=== PATIENT | male | born 1975 | race Caucasian/White ===

== ENCOUNTER 2019-10-05 07:00 | Outpatient (CLI) | payer BC, SELFPAY ==
[2019-10-05 10:52] LABS: HCT 44.3 % (40.0-50.0); HGB 14.5 g/dL (13.5-17.5); Mean Corp. HGB Concentration 32.7 g/dL (32.0-36.0); Mean Corpuscular Hemoglobin 26.3 pg (27.0-33.0); Mean Corpuscular Volume 80.4 fL (80-95); Mean Platelet Volume 9.5 fL (8.0-11.0); Platelet Count 318 x1000/uL (130-400); RBC 5.51 m/cumm (4.50-6.00); RBC Distribution Width 14.1 % (11.8-14.1); White Blood Cell Count 8.06 k/cumm (4.4-10.8)
[2019-10-05 13:39] LABS: ALT 32 U/L (16-63); AST 13 U/L (15-37); Albumin 3.6 g/dL (3.4-5.0); Alkaline Phosphatase 89 U/L (46-116); Anion Gap 9.4 mmol/L (3-11); BUN 13 mg/dL (7-18); Bilirubin, Total 0.6 mg/dL (0.2-1.0); CO2 28.6 mmol/L (21.0-32.0); CREATININE 0.89 mg/dL (0.70-1.30); Calcium 8.6 mg/dL (8.5-10.1); Calculated LDL 147 mg/dL; Chloride 104 mmol/L (98-107); Cholesterol 207 mg/dL (50-200); Glucose 89 mg/dL (70-100); HDL Cholesterol 41 mg/dL (40-60); Potassium 4.1 mmol/L (3.5-5.1); Sodium 142 mmol/L (136-145); TSH (W/Ref FT4) 2.34 uIU/mL (0.36-3.74); Total Protein 6.9 g/dL (6.4-8.2); Triglyceride 95 mg/dL (30-150)
== END 2019-10-05 07:20 ==
PROVIDERS: Family Medicine; PCP Emergency Medicine; Visit Provider Emergency Medicine
DX: I10 Essential (primary) hypertension (principal); E78.5 Hyperlipidemia, unspecified
CPT/HCPCS: 36415; 80053; 80061; 85027; 84443

== ENCOUNTER 2020-06-06 10:54 | Observation (INO) | payer BC, SELFPAY ==
[2020-06-06] VITALS (50 sets, daily range): BP systolic 144–217; BP diastolic 75–110; PULSE 53–81; RESP 8–22; TEMP 36.7–37.3; O2SAT 83–99
--- NOTE | 2020-06-06 10:45 | RT.EKG_ITS ---
APPROVED REPORT Exam: Resting ECG Patient Location: E HR:79 bpm ECG Measurements Heart Rate 79 AXIS NM 143 P 18 QRSd 94 QRS -21 QT 410 T 9 QTc 472 <Conclusion> Sinus rhythm...normal P axis, V-rate79, QRS is narrow, wandering baseline, ? subtle lateral st depres sions. Probable LVH with secondary repol abnrm...multiple LVH criteria
[2020-06-06] MEDS: Normal Saline Flush 10 ML SYR IVP ×2 (11:14→16:10)
[2020-06-06 11:17] LABS: Abs Immature Grans 0.02 k/cumm (0.0-0.09); Absolute Basophil Count 0.07 k/cumm (0.0-0.2); Absolute Eosinophil Count 0.61 k/cumm (0.0-0.7); Absolute Lymphocyte Count 2.03 k/cumm (1.2-3.4); Absolute Monocyte Count 0.83 k/cumm (0.11-0.7); Basophils % 0.7; Eosinophils % 5.7; HCT 45.5 % (40.0-50.0); HGB 15.2 g/dL (13.5-17.5); Immature Grans % 0.2 %; Mean Corp. HGB Concentration 33.4 g/dL (32.0-36.0); Mean Corpuscular Hemoglobin 26.3 pg (27.0-33.0); Mean Corpuscular Volume 78.7 fL (80-95); Monocytes % 7.8; Neutrophils % 66.6; Platelet Count 304 x1000/uL (130-400); RBC 5.78 m/cumm (4.50-6.00); RBC Distribution Width 13.8 % (11.8-14.1); White Blood Cell Count 10.66 k/cumm (4.4-10.8)
--- NOTE | 2020-06-06 11:26 | ED.GENADUL_ITS ---
Discharge Plan Disposition Patient Disposition: [facility] INPATIENT Condition: Serious Discharge Details Chief Complaint: Chest Pain Clinical Impression: Bilateral pulmonary embolism Primary Care Provider: Huy Min ED Provider: Evan Hastings Home Meds and New Rx's Prescriptions: No Action amlodipine 5 mg tablet 5 mg PO DAILY Qty: 60 RF: 5 valsartan 160 mg tablet 160 mg PO DAILY Qty: 60 RF: 5 ibuprofen 200 MG capsule 4 tab PO BID PRN RF: 0 epinephrine 0.3 MG/0.3 ML auto-injector 0.3 mg IM ONCE Qty: 1 RF: 2 esomeprazole magnesium [Nexium] 20 MG capsule,delayed release(DR/EC) 20 mg PO DAILY Qty: 90 RF: 3 naproxen 250 MG tablet 2 tab PO BID PRN PRNRF: 0 Medical Decision Making 45-year-old male with a history of hypertension. Referred by Dr. Min after coming to the office today to report 5 days of primarily exertional dyspnea. He states it began after 1 day using his CPAP and he stopped using the CPAP since. He has noted some mild daily headaches in the morning since ceasing positive airway pressure at night. He arrives hypertensive with a blood pressure of 217/109. EKG both in the office and repeated upon arrival does show some subtle lateral ST segment depressions similar to that obtained in the office. Differential diagnosis includes coronary artery disease/ACS, PE, new onset CHF. Patient had IV access established, was referred for laboratories, screening EKG as above and chest x-ray. Laboratories notable for negative troponin, preserved renal function, d-dimer of 6200. Subsequent CT of the chest reveals bilateral upper and lower lobe PEs without evidence of right heart strain. I have ordered an echocardiogram. Patient remains stable and in no acute distress, the echocardiogram reveals normal LV wall motion with an ejection fraction of 60%. Right ventricular systolic function is normal. Case discussed with Dr. Hinton. Patient anticoagulated with Lovenox. Patient to be admitted. HPI General Mode of arrival: ambulatory . Date/Time Provider Initiated Documentation: 06/06/20 10:55 . Limitations to Documentation: no limitations . Information obtained by: patient . History of Present Illness 45 year old M presents to the emergency department with the chief complaint of Shortness of breath, described as moderate, and is localized to the chest. Patient reports no radiation. Patient started experiencing this day(s) and it has been intermittent. Rest improves symptom(s), Other factors that worsen symptoms (Exertion) . Patient notes shortness of breath; denies chest pain and syncope. Patient did receive the following treatments prior to arrival, none Related Data Home Medications Medication Instructions Recorded Confirmed ibuprofen 4 tab PO BID PRN 08/29/14 06/06/20 naproxen 2 tab PO BID PRN PRN 10/10/14 06/06/20 epinephrine 0.3 mg IM ONCE #1 syringe 07/02/15 06/06/20 esomeprazole magnesium [Nexium] 20 mg PO DAILY #90 tab-cap 01/27/17 06/06/20 amlodipine 5 mg tablet 5 mg PO DAILY #60 tab 10/05/19 06/06/20 valsartan 160 mg tablet 160 mg PO DAILY #60 tab 10/05/19 06/06/20 Previous Rx's Medication Instructions Recorded amlodipine 5 mg tablet 5 mg PO DAILY #60 tab 10/05/19 valsartan 160 mg tablet 160 mg PO DAILY #60 tab 10/05/19 Allergies Allergy/AdvReac Type Severity Reaction Status Date / Time venom-honey bee Allergy Severe Anaphylaxsi Verified 06/06/20 10:17 s acetaminophen [From Percocet] AdvReac Intermediate N/V AND Verified 06/06/20 10:17 ABDOMINAL CRAMPING/Rebound VIEYRA oxycodone HCl [From Percocet] AdvReac Intermediate N/V AND Verified 06/06/20 10:17 ABDOMINAL CRAMPING General Stated Complaint: Chest Pain GANGA: 2 Review of Systems Narrative: Denies syncope. Denies chest pain. He grades the severity of the exertional dyspnea up to 5-6 out of 10, 3 out of 10 after walking from the parking lot. 100 pound weight gain over 20 years. No peripheral swelling. 8 systems reviewed and otherwise negative. No cough, fever, travel of note. COUNTS INCLUDE 234 BEDS AT THE [facility] Medical History Sleep apnea in adult (Acute) Social History Smoking/Tobacco Use Status: Former Tobacco Use Alcohol Intake: current Alcohol Intake frequency: a few times a month Drug use: Never Substance use type: does not use Do you feel safe at home: Yes Do you feel safe in your relationship?: Yes Exam Narrative Exam Narrative: GEN: awake, alert, oriented 3. Pleasant, well groomed, interactive. HEAD: Normocephalic, atraumatic ENT: Mucous membranes moist, oropharynx unremarkable, External ear exam unremarkable EYES: PERRL, EOMI NECK: Full ROM, no KRISTINA, no menigismus CHEST/RESP: Nontender, clear to auscultation bilateral, no wheeze/rhonchi/rales CARDIOVASCULAR: RRR, no murmur, rub osmel. 2+ Rad pulse bilateral ABDOMEN: Soft, nontender, no mass. +Bowel sounds EXT: Full ROM, no edema, no rash Neuro: Grossly normal neurologic exam, conversant, interactive. Psych: Speech fluent, thoughts congruent, affect normal Course Vital Signs Vital signs: Vital Signs Pulse Oximetry 94 L 06/06/20 10:59 Temperature 36.7 C 06/06/20 11:01 Temperature Source Temporal Artery Scan 06/06/20 11:01 Pulse 72 06/06/20 11:07 Pulse 71 06/06/20 11:10 Respiratory Rate 13 06/06/20 11:10 Respiratory Effort Non-Labored 06/06/20 11:06 Respiratory Depth Normal 06/06/20 11:06 Blood Pressure 184/107 H 06/06/20 11:07 Blood Pressure Mean 127 06/06/20 11:07 Blood Pressure Position Sitting 06/06/20 11:01 Pulse Oximetry 98 06/06/20 11:10 Oxygen Delivery Method Room Air 06/06/20 11:01 Oxygen Flow Rate 0 06/06/20 11:01 Pain Level 0 06/06/20 11:06 Lab/Test Results Lab/Test Results: Laboratory Tests Range/Units 06/06/20 11:04 WBC (4.4-10.8) k/cumm 10.66 RBC (4.50-6.00) m/cumm 5.78 Hgb (13.5-17.5) g/dL 15.2 Hct (40.0-50.0) % 45.5 MCV (80-95) fL 78.7 L MCH (27.0-33.0) pg 26.3 L MCHC (32.0-36.0) g/dL 33.4 RDW (11.8-14.1) % 13.8 Plt Count (130-400) x1000/uL 304 MPV (8.0-11.0) fL 9.0 Immature Gran % % 0.2 Neutrophils % 66.6 Lymphocytes % 19.0 Monocytes % 7.8 Eosinophils % 5.7 Basophils % 0.7 Absolute Neutrophils (1.2-6.7) k/cumm 7.10 H Absolute Lymphocytes (1.2-3.4) k/cumm 2.03 Absolute Monocytes (0.11-0.7) k/cumm 0.83 H Absolute Eosinophils (0.0-0.7) k/cumm 0.61 Absolute Basophils (0.0-0.2) k/cumm 0.07
[2020-06-06 11:36] LABS: ALT 32 U/L (16-63); AST 13 U/L (15-37); Albumin 3.6 g/dL (3.4-5.0); Alkaline Phosphatase 94 U/L (46-116); Anion Gap 9.8 mmol/L (3-11); BUN 12 mg/dL (7-18); Bilirubin, Total 0.7 mg/dL (0.2-1.0); CO2 27.2 mmol/L (21.0-32.0); CREATININE 0.99 mg/dL (0.70-1.30); Calcium 8.8 mg/dL (8.5-10.1); Chloride 102 mmol/L (98-107); Glucose 153 mg/dL (74-106); Magnesium 2.2 mg/dL (1.8-2.4); NT-proBNP 82 pg/mL (<300); Potassium 3.7 mmol/L (3.5-5.1); Sodium 139 mmol/L (136-145); Total Protein 7.9 g/dL (6.4-8.2); Troponin I < 0.05 ng/mL (<0.06)
--- NOTE | 2020-06-06 11:38 | DI.RAD_ITS ---
EXAM: XR CHEST 2V PA LATERAL CLINICAL HISTORY: exertional SOB TECHNIQUE: 2D digital imaging was performed. COMPARISON: No exams were available for comparison FINDINGS: MEDIASTINUM: Normal. HEART: Normal. PULMONARY VASCULATURE: Normal. LUNGS: Clear. PLEURAL SPACE: No pleural effusion or pneumothorax. BONE:Normal. OTHER FINDINGS:Normal. IMPRESSION: No acute pulmonary findings. DATA REPOSITORY: RADIATION DOSE DELIVERED:
[2020-06-06] MEDS: Aspirin 325 MG TAB PO (11:40)
--- NOTE | 2020-06-06 12:00 | DI.CT_ITS ---
EXAM: CT CHEST PE CTA CLINICAL HISTORY: SOB w exertion, elev DDimer. TECHNIQUE: Imaging Protocol: Axial CT angiography was performed with multi-slice acquisition and mu lti-planar and/or 3D reconstructions. CONTRAST MATERIAL: Intravenous: Omnipaque 350 Contrast volume:88 ml COMPARISON: CR XR CHEST 2V PA LATERAL from 06/06/2020 FINDINGS: Pulmonary Arteries: There are filling defects in both upper and lower lobe pulmonary artery branches bilaterally. There is no saddle embolus. Tracheobronchial tree: Patent where visualized. Mediastinum and Dorina: No dominant adenopathy or fluid collection. Pulmonary parenchyma: No consolidation or dominant measurable mass. Pleura: No effusion or pneumothorax. Heart: Heart size appears normal. There is no evidence of right heart strain. Aorta: Thoracic aorta non-dilated. Upper abdomen: Fatty liver. Bones: Mild degenerative disc changes in the spine.. IMPRESSION: Bilateral upper and lower lobe pulmonary emboli. RADIATION DOSE DELIVERED: Total DLP DATA REPOSITORY: All CT scans at this facility are submitted to the National Radiology Data Registry (NRDR) Dose Index Registry (DIR) with the [employer] (ACR). RADIATION OPTIMIZATION: All CT scans at this facility use at least one of these dose optimization te chniques: automated exposure control; mA and/or kV adjustment per patient size (includes targeted exa ms where dose is matched to clinical indication); or iterative reconstruction.
[2020-06-06 12:10] LABS: D-Dimer 6232 ng/mlFEU (<500)
[2020-06-06] MEDS: Omnipaque 350 MG/ML 100 ML BTL IJ (13:00)
--- NOTE | 2020-06-06 13:31 | DI.US_ITS ---
APPROVED REPORT EXAM: Comprehensive 2D, Doppler, and color-flow Echocardiogram Patient Location: ER Room/Bed: 4 Header Operator: Nolvia Hemphill RDCS (AE) Indications: SOB, Pulmonary Embolism Other Information Study Quality: Good Conclusion Normal left ventricular wall thickness and chamber size. Estimated ejection fraction is 60% Right ventricular size and function is normal There is no chamber enlargement There is no structural valvular disease. There is trace physiologic mitral and tricuspid regurgitation. Estimated right ventricular systolic pressure is 31.7 mmHg Wall motion Left Ventricle The left ventricle is normal size. The left ventricular systolic function is normal. The left ventric ular ejection fraction is within the normal range. There is normal left ventricular wall thickness. T here is normal LV segmental wall motion. There is no ventricular septal defect visualized. LVEF is 60 %. Right Ventricle The right ventricle is normal size. The right ventricular systolic function is normal. The RVSP is 31 .7 mmHg. Atria The left atrium size is normal. The right atrium size is normal. The interatrial septum is intact wit h no evidence for an atrial septal defect. Aortic Valve Aortic valve is trileaflet. No hemodynamically significant valvular aortic stenosis. No aortic regurg itation is present. Mitral Valve The mitral valve is normal in structure. No evidence of mitral valve stenosis. Trace mitral regurgita tion. Tricuspid Valve The tricuspid valve is normal in structure. There is no tricuspid valve stenosis. Trace tricuspid reg urgitation. Pulmonic Valve The pulmonary valve is normal in structure. There is no pulmonic valvular stenosis. There is no pulmo richmond valvular regurgitation. Great Vessels The aortic root is normal in size. The ascending aorta is mildly dilated. IVC is normal in size and c ollapses >50% with inspiration. Pericardium There is no pericardial effusion. There is no pleural effusion. 2D Dimensions IVSD d PLAX 1.00 cm M: 0.6-1.2 LV Vol A2C d MOD 135.7 mL LVPW d PLAX 1.02 cm M: 0.6 - 1.2 LV Vol A4C d MOD 137.8 mL LVID d PLAX 5.87 cm M: 4.2 - 5.8 LA vol/ BSA A2C s A-L 24.1 mL/m2 LVDs 3.95 cm M: 2.5 - 4.0 LA vol/ BSA A4C s A-L 19.7 mL/m2 Ao Root d 3.41 cm M: 3.1 - 3.7 LA Vol/ BSA Biplane s A-L 22.1 mL/m2 RA Area A4C 15.92 cm2 LA Area A4C s MOD 18.48 cm2 RA Vol/ BSA A4C s A-L 17.7 mL/m2 LA Area A2C s MOD 20.75 cm2 Ao Asc Diam d 4.19 cm M: 2.6 - 3.4 LV EF A4C MOD 62.8 % LV EF Teichholz 59.6 % LV EF A2C MOD 59.4 % LVEF (Cobb's) 61.85 % M: 52 - 72 LV EF Biplane MOD 61.8 % LV Volume 96.96 mL M: 62 - 150 SV 86.37 mL LV Volume Index 35.64 mL/m2 M: 34 - 74 SV Index 33.56 mL/m2 LV Vol Biplane MOD 139.7 mL FS 32.20 % M-Mode TAPSE 2.63 cm (M/F) >1.7 LV Diastology MV E' medial 0.103 (>0.07 m/s) E/A Ratio 1.1 LV E/e MED 7.55 (<14) MV E Vmax 0.78 (0.4-1.3 m/s) MV E' lateral 0.121 (>0.1 m/s) MV A Vmax 0.70 (0.4-1.3 m/s) LV E/e LAT 6.40 (<14) MV E/A Ratio 1.10 MV E/E' medial 7.56 MV E/E' lateral 6.41 Aortic Valve LVOT Area 2.60 cm2 AoV Area Vmax 1.91 cm2 LVOT Vmax 1.48 m/s AoV Area/ BSA (Vmax) 0.74 cm2/m2 LVOT Mean Helio. 1.09 m/s ENIO Mean Helio. 2.17 cm2 LVOT Peak Grad 8.8 mmHg ENIO Mean Helio. Index 0.84 cm2/m2 LVOT Mean Grad 5.1 mmHg LVOT VTI 0.272 m LVOT Diam s 1.80 cm AoV Vmax 2.01 m/s Velocity Ratio 0.73 AoV Mean Helio. 1.31 m/s AoV Peak Grad 16.2 mmHg LVOT SV 70.65 mL AoV Mean Grad 8.1 mmHg AoV VTI 0.363 m AoV Area VTI 1.95 cm2 AoV Area/ BSA (VTI) 0.76 cm/m2 Mitral Valve MV DT 195 (160-240 msec) MV PHT 56 msec MV Area PHT 3.90 cm2 Pulmonary Valve PV Vmax 1.07 (0.5-1.5 m/s) RVOT Peak Gr. 1.32 mmHg PV Peak Grad 4.6 mmHg RVOT Mean Gr. 0.70 mmHg PV Mean Grad 3.2 mmHg RVOT VTI 0.134 m PV VTI 0.284 m RVOT Vmax 0.57 m/s Tricuspid Valve TR Peak Grad 28.6 mmHg TR Vmax 2.68 m/s RA Pressure 3.00 mmHg RVSP (TR) 31.7 mmHg
--- NOTE | 2020-06-06 14:00 | RT.EKG_ITS ---
APPROVED REPORT Exam: Resting ECG Patient Location: E HR:58 bpm ECG Measurements Heart Rate 58 AXIS UT 148 P 16 QRSd 95 QRS -22 QT 453 T -9 QTc 447 <Conclusion> Sinus bradycardia...rate< 60, qrs narrow,n st flat v5, no st elev
[2020-06-06 14:43] LABS: Troponin I < 0.05 ng/mL (<0.06)
--- NOTE | 2020-06-06 15:00 | DI.US_ITS ---
EXAM: US EXTREMITY VENOUS BI CLINICAL HISTORY: B PE's, concern for DVT. TECHNIQUE: Bilateral lower extremity venous ultrasound performed using grayscale, color-flow, and sp ectral Doppler analysis. COMPARISON: No exams were available for comparison FINDINGS: Right lower extremity ultrasound: Common femoral, femoral and popliteal veins demonstrate normal comp ressibility, augmentation, and color Doppler. The posterior tibial veins are patent. Left lower extremity ultrasound: The common femoral, femoral veins and greater saphenous vein demonst rate normal compressibility, augmentation and color Doppler. The left popliteal vein and the proximal portion of 1 of the posterior tibial veins demonstrate throm bus. IMPRESSION: Right: Negative for DVT Left: Deep venous thrombosis in the popliteal and 1 of the paired posterior tibial veins. DATA REPOSITORY:
[2020-06-06] MEDS: Normal Saline 1,000 ML 75 ML IV (16:10)
--- NOTE | 2020-06-06 16:32 | HPE_ITS ---
Date of service: 06/06/20 Time of Service: 16:33 Assessment and Plan Assessment and plan (1) Bilateral pulmonary embolism: Status: Acute Assessment and plan: With no evidence of R heart strain. Monitor on tele. Continue lovenox. Consult heme on recommendationsa s far as anticoagulation. Hypercoagulable workup/malignancy workup to be done as outpatient. (2) Deep vein thrombosis (DVT) of popliteal vein of left lower extremity: Status: Acute Assessment and plan: As above (3) Essential hypertension: Status: Acute Assessment and plan: conitnue amlodipine; hold ARB as received iV con trast. (4) Sleep apnea in adult: Status: Acute Assessment and plan: Provide CPAP (5) Esophageal reflux: Status: Acute Assessment and plan: Continue PPI (6) Discharge planning issues: Status: Acute Assessment and plan: DNR, but not DNI. Expected to be discharged home tomorrow History of Present Illness History of Present Illness Chief Complaint: ARGUELLO Narrative: Mr Adames is a 45 year old male with PMHx of hypertension, ASTRID on CPAP, GERD, obesity, who five days ago noted shortness of breath that woke him up while he was wearing his CPAP, but did not resolve with removal of the CPAP. At the same time, he also noted pain in his left ankle and his left calf, but no swelling. The shortness of breath happened at rest, but was worse with activity. There was no dizziness, chest pain, or palpitations. There has not been a cough/hemoptysis. He went to see his PCP today who was concerned about a cardiac etiology for his symptoms and sent him to the ED, where in fact he was found to have bilateral PEs without evidence of R heart strain. He was initiated on lovenox. We were asked to admit the patient for further care. Review of Systems All systems reviewed & are unremarkable except as noted in HPI and below PFSH Medical History (Updated 06/06/20 @ 17:32 by April Hinton MD) Esophageal reflux (Acute) Essential hypertension (Acute) Obesity (Acute) Sleep apnea in adult (Acute) Surgical History (Updated 06/06/20 @ 17:22 by April Hinton MD) H/O hand surgery (Acute) right hand H/O lumbar discectomy (Acute) S/P right rotator cuff repair (Inactive) Family History (Updated 06/06/20 @ 17:23 by April Hinton MD) Father Heart disease Mother Heart disease Stroke Cancer ovarian, breast, and lymphoma Pulmonary embolism Social History Smoking/Tobacco Use Status: Former Tobacco Use Alcohol Intake: current Alcohol Intake frequency: a few times a month Drug use: Never Substance use type: does not use Do you feel safe at home: Yes Do you feel safe in your relationship?: Yes Meds Home Medications and Allergies Home Medications Medication Instructions Recorded Confirmed Type ibuprofen 4 tab PO BID PRN 08/29/14 06/06/20 History naproxen 2 tab PO BID PRN PRN 10/10/14 06/06/20 History epinephrine 0.3 mg IM ONCE #1 syringe 07/02/15 06/06/20 History esomeprazole magnesium [Nexium] 20 mg PO DAILY #90 tab-cap 01/27/17 06/06/20 History amlodipine 5 mg tablet 5 mg PO DAILY #60 tab 10/05/19 06/06/20 Rx valsartan 160 mg tablet 160 mg PO DAILY #60 tab 10/05/19 06/06/20 Rx Allergies Allergy/AdvReac Type Severity Reaction Status Date / Time venom-honey bee Allergy Severe Anaphylaxsi Verified 06/06/20 10:17 s acetaminophen [From Percocet] AdvReac Intermediate N/V AND Verified 06/06/20 10:17 ABDOMINAL CRAMPING/Rebound VIEYRA oxycodone HCl [From Percocet] AdvReac Intermediate N/V AND Verified 06/06/20 10:17 ABDOMINAL CRAMPING Exam Narrative Exam Narrative: General: Very pleasant obese male, laying comfortably in bed, no respiratory distress noted Neurological: A&Ox3, no focal deficits Psychiatric: Appropriate speech pattern/content Skin: visible skin intact HEENT: Atraumatic, normocephalic, EOMI, MMM, clear oropharynx, no submandibular or cervical lymphadenopathy, no goiter or JVD, large neck diameter Cardiovascular: RRR, no m/r/g Lungs: CTAB Gastrointestinal: soft, nontender, nondistended Genitourinary: deferred Extremities: no e/c/c BLE's Results Imaging Additional studies: Venous doppler BLE's: Right: Negative for DVT Left: Deep venous thrombosis in the popliteal and 1 of the paired posterior tibial veins. CTA chest: Bilateral upper and lower lobe pulmonary emboli. CXR: No acute pulmonary findings. EKG: NSR, HR 58, inferolateral ST segment flattening/depressions (new from 2019) Labs Result diagrams: 06/06/20 11:04 06/06/20 11:04 Labs: Laboratory Results - last 24 hr 06/06/20 06/06/20 06/06/20 11:04 11:04 11:04 WBC 10.66 RBC 5.78 Hgb 15.2 Hct 45.5 MCV 78.7 L MCH 26.3 L MCHC 33.4 RDW 13.8 Plt Count 304 MPV 9.0 Immature Gran % 0.2 Neutrophils % 66.6 Lymphocytes % 19.0 Monocytes % 7.8 Eosinophils % 5.7 Basophils % 0.7 Absolute Neutrophils 7.10 H Absolute Lymphocytes 2.03 Absolute Monocytes 0.83 H Absolute Eosinophils 0.61 Absolute Basophils 0.07 D-Dimer 6232 H Sodium 139 Potassium 3.7 Chloride 102 Carbon Dioxide 27.2 Anion Gap 9.8 BUN 12 Creatinine 0.99 Estimated GFR/1.73 m2 >= 60.00 Glucose 153 H Calcium 8.8 Magnesium 2.2 Total Bilirubin 0.7 AST 13 L ALT 32 Alkaline Phosphatase 94 Troponin I < 0.05 NT-Pro-B Natriuret Pep 82 Total Protein 7.9 Albumin 3.6 06/06/20 14:15 WBC RBC Hgb Hct MCV MCH MCHC RDW Plt Count MPV Immature Gran % Neutrophils % Lymphocytes % Monocytes % Eosinophils % Basophils % Absolute Neutrophils Absolute Lymphocytes Absolute Monocytes Absolute Eosinophils Absolute Basophils D-Dimer Sodium Potassium Chloride Carbon Dioxide Anion Gap BUN Creatinine Estimated GFR/1.73 m2 Glucose Calcium Magnesium Total Bilirubin AST ALT Alkaline Phosphatase Troponin I < 0.05 NT-Pro-B Natriuret Pep Total Protein Albumin Last Vital Signs Temp 36.7 C 06/06/20 16:01 Pulse 58 L 06/06/20 16:01 Resp 18 06/06/20 16:01 BP 159/75 H 06/06/20 16:01 Pulse Ox 94 L 06/06/20 16:01 COVID-19 Screening Have you,or anyone in your household, traveled outside of [place] in the last 14 days?: YES Had IN PERSON contact w/suspected or confirmed C-19 person: No
[2020-06-06] MEDS: Ibuprofen 800 MG TAB PO (20:33)
[2020-06-07 00:45] VITALS: BP 111/79; PULSE 56; RESP 16; TEMP 36; O2SAT 93
[2020-06-07 03:28] VITALS: BP 150/83; PULSE 70; RESP 17; TEMP 36.8; O2SAT 94
[2020-06-07] MEDS: Normal Saline 1,000 ML 75 ML IV (05:28)
[2020-06-07 07:08] VITALS: BP 163/100; PULSE 59; RESP 18; TEMP 37.1; O2SAT 96
[2020-06-07 07:16] LABS: Abs Immature Grans 0.02 k/cumm (0.0-0.09); Absolute Basophil Count 0.06 k/cumm (0.0-0.2); Absolute Eosinophil Count 0.64 k/cumm (0.0-0.7); Absolute Lymphocyte Count 2.06 k/cumm (1.2-3.4); Absolute Monocyte Count 0.59 k/cumm (0.11-0.7); Absolute Neutrophil Count 4.95 k/cumm (1.2-6.7); Basophils % 0.7; Eosinophils % 7.7; HCT 41.3 % (40.0-50.0); HGB 13.8 g/dL (13.5-17.5); Immature Grans % 0.2 %; Lymphocytes % 24.8; Mean Corp. HGB Concentration 33.4 g/dL (32.0-36.0); Mean Corpuscular Hemoglobin 26.5 pg (27.0-33.0); Mean Corpuscular Volume 79.4 fL (80-95); Mean Platelet Volume 9.2 fL (8.0-11.0); Monocytes % 7.1; Neutrophils % 59.5; Platelet Count 277 x1000/uL (130-400); RBC Distribution Width 13.6 % (11.8-14.1); White Blood Cell Count 8.32 k/cumm (4.4-10.8)
[2020-06-07 07:42] LABS: ALT 24 U/L (16-63); AST 16 U/L (15-37); Albumin 3.1 g/dL (3.4-5.0); Alkaline Phosphatase 83 U/L (46-116); Anion Gap 8.9 mmol/L (3-11); BUN 9 mg/dL (7-18); Bilirubin, Direct 0.14 mg/dL (0.00-0.20); Bilirubin, Total 0.8 mg/dL (0.2-1.0); CO2 26.1 mmol/L (21.0-32.0); CREATININE 0.95 mg/dL (0.70-1.30); Calcium 8.4 mg/dL (8.5-10.1); Chloride 105 mmol/L (98-107); Glucose 99 mg/dL (74-106); Magnesium 2.1 mg/dL (1.8-2.4); Potassium 3.7 mmol/L (3.5-5.1); Sodium 140 mmol/L (136-145); Total Protein 6.6 g/dL (6.4-8.2)
[2020-06-07 07:45] LABS: Troponin I < 0.05 ng/mL (<0.06)
[2020-06-07] MEDS: Esomeprazole 20 MG CAPCR PO (07:58)
[2020-06-07] MEDS: amLODIPine 5 MG TAB PO (07:58)
[2020-06-07] MEDS: Ibuprofen 800 MG TAB PO (08:11)
[2020-06-07 08:14] LABS: COVID-19 RT-PCR UVMMC Result Negative (Negative)
--- NOTE | 2020-06-07 09:50 | PDOC.CMIN ---
- If Service Date Differs Date of service: 06/07/20 Time of Service: 15:29 Care Management Initial Assess REASON FOR HOSPITALIZATION:: Acute bilateral Pulmonary Emboli PAST MEDICAL HISTORY/PAST SURGICAL HISTORY:: Esophageal reflux, essential hypertension, obesity, sleep apnea in adult, right hand surgery, lumbar discectomy, right rotator cuff repair PREVIOUS FUNCTIONAL STATUS/SOCIAL/FAMILY SUPPORTS:: Xavier resides with his , Ernestina in [place], [place]. 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 CURRENT FUNCTIONAL STATUS:: Xavier is sitting up in his chair, ready for discharge. He is pleasant in interaction and shares no concerns about returning home. ADVANCE DIRECTIVES:: None on file at [facility]. Has patient been provided with info about the portal/API?: Yes Did the patient sign up for the portal?: No CODE STATUS:: DNR INSURANCE COVERAGE / FINANCIAL ISSUES:: /[facility] CURRENT HOME/COMMUNITY SERVICES/EQUIPMENT:: No current services or equipment. PRIMARY CARE PHYSICIAN:: Huy Min, DO POTENTIAL DISCHARGE NEEDS:: New medications, follow up appointments. CM faxed Eliquis prescription co-pay card to [facility] in [facility] and reviewed coverage [facility] CM notified [facility] at [facility] as well as MD, who edited prescription as requested. PATIENT/FAMILY EDUCATION NEEDS:: Review discharge instructions, discuss Ask Me Three. ANTICIPATED BARRIERS TO DISCHARGE:: None identified. TRANSPORTATION:: Via private vehicle with his . PLAN:: Xavier will return home when ready per MD. Anticipate he will be on a new anticoagulant medication upon discharge. He will follow up with his PCP and plan of care as prescribed. He will transport via private vehicle with his .
[2020-06-07 11:26] VITALS: PULSE 64; PULSE 70; PULSE 88; RESP 16; RESP 20; O2SAT 90; O2SAT 95; O2SAT 96
[2020-06-07 11:41] VITALS: BP 173/105; PULSE 64; RESP 17; TEMP 37.2; O2SAT 96
--- NOTE | 2020-06-07 13:47 | W.PM.DS.N ---
Date of service: 06/07/20 Time of Service: 13:49 DS: Diagnosis Discharge Diagnosis (1) Bilateral pulmonary embolism: Status: Acute (2) Deep vein thrombosis (DVT) of popliteal vein of left lower extremity: Status: Acute (3) Essential hypertension: Status: Acute (4) Sleep apnea in adult: Status: Acute (5) Esophageal reflux: Status: Acute (6) Pre-diabetes: Status: Acute (7) Obesity, morbid, BMI 40.0-49.9: Status: Acute (8) Headache: Status: Acute (9) COVID-19 ruled out by laboratory testing: Status: Acute Discharge Plan Disposition Patient Disposition: HOME Condition: Stable Discharge Details Chief Complaint: Chest Pain Clinical Impression: Bilateral pulmonary embolism Reason For Visit: ACUTE BILATERAL PULMONARY EMBOLI Admit Date/Time: 06/06/20 15:03 Admit Provider: April Hinton Attending Provider: April Hinton Primary Care Provider: Huy Min ED Provider: [facility] Hospital Course Hospital Course: Mr Adames is a 45 year old male with PMHx of hypertension, ASTRID, GERD, obesity with BMI of 41, who was observed on [facility] hospitalist service from 06/06/2020 until 06/07/2020 for acute bilateral PEs without evidence of right heart strain, as well as an unprovoked left popliteal and posterior tibial vein DVTs. He was initiated on lovenox and transitioned to eliquis with the advice of [facility] Hematology, where he is being referred on discharge. He is also being referred to pulmonology. He does not require oxygen on ambulation or at rest. He did not have arrhythmic events on telemetry. His hypercoagulable workup is being deferred until his outpatient follow up with hematology. He was found to have prediabetes and is being given literature on discharge about that. He should follow up with his PCP on that subject. He is medically stable for discharge home today, and insurance coverage of his eliquis has been confirmed. Home Meds and New Rx's Prescriptions: New Eliquis 5 mg tablet See Rx Instructions .ROUTE .COMPLEX Qty: 70 RF: 0 acetaminophen [Mapap Extra Strength] 500 mg Tablet 1,000 mg PO Q6H PRN PRNQty: 0 RF: 0 Continued amlodipine 5 mg tablet 5 mg PO DAILY Qty: 60 RF: 5 valsartan 160 mg tablet 160 mg PO DAILY Qty: 60 RF: 5 epinephrine 0.3 MG/0.3 ML auto-injector 0.3 mg IM ONCE Qty: 1 RF: 2 esomeprazole magnesium [Nexium] 20 MG capsule,delayed release(DR/EC) 20 mg PO DAILY Qty: 90 RF: 3 Discontinued ibuprofen 200 MG capsule 4 tab PO BID PRN RF: 0 naproxen 250 MG tablet 2 tab PO BID PRN PRNRF: 0 Discharge Instructions Instructions: Apixaban (By mouth), Pulmonary Embolism (DC), Deep Vein Thrombosis (DC), Prediabetes (DC) Additional Instructions: Take your eliquis as prescribed. Do not take NSAIDs for pain while on eliquis. Ok to take tylenol. Return to the hospital with any fever, bleeding, chest pain, shortness of breath. Follow up with your PCP within 1 week. Follow up with [facility] hematology and pulmonology. Stand Alone Forms: Nursing Discharge Form Referrals: HEMATOLOGY/ONC,[facility] [OTHER] - PULMONOLOGY,[facility] [OTHER] - Huy Min DO [Primary Care Provider] - Activity:: Activity as Tolerated Equipment/Supplies:: No Equipment Needed Diet:: Low Sodium Discharge Orders Discharge Orders: Discharge Order (Routine); Ordered 06/07/20 Ordered By: April Hinton DS: Summary Status at Discharge Functional status at discharge: independent ambulation Overall status at discharge: patient is progressing back to baseline Mental Status: mental status grossly normal Speech and Movement: speech and movement normal Mood: congruent mood Affect: normal affect Exam Narrative Exam Narrative: General: Very pleasant obese male, sitting up in a chair, no respiratory distress noted, A&Ox3 HEENT: Atraumatic, normocephalic, EOMI, MMM Cardiovascular: RRR, no m/r/g Lungs: CTAB Gastrointestinal: soft, nontender, nondistended Extremities: no e/c/c BLE's Psych Mental Status: mental status grossly normal Speech and Movement: speech and movement normal Mood: congruent mood Affect: normal affect DS: Data Vitals/I&O Vitals and I&O: Vital Signs Temperature 37.2 C 06/07/20 11:41 Temperature Source Temporal Artery Scan 06/07/20 11:41 Pulse 64 06/07/20 11:41 Pulse Rhythm Regular 06/07/20 08:00 Pulse 59 L 06/06/20 15:10 Respiratory Rate 17 06/07/20 11:41 Respiratory Effort 06/07/20 08:00 Respiratory Depth Normal 06/07/20 08:00 Respiratory Pattern Normal 06/07/20 08:00 Blood Pressure 173/105 H 06/07/20 11:41 Blood Pressure Mean 104 06/06/20 15:01 Blood Pressure Position Sitting 06/06/20 11:01 Pulse Oximetry 96 06/07/20 11:41 Oxygen Delivery Method Room Air 06/07/20 11:41 Oxygen Flow Rate 0 06/07/20 11:41 Pain Level 0 06/07/20 11:41 Intake & Output 06/06/20 06/07/20 06/07/20 23:59 11:59 23:59 Intake Total 350 / 350 997.5 / 1746.25 748.75 / 1746.25 Output Total 400 / 400 1100 / 1100 Balance -50 / -50 -102.5 / 646.25 748.75 / 646.25 Weight 141.521 kg 138.6 kg Intake: IV 997.5 / 1506.25 508.75 / 1506.25 Oral 350 / 350 240 / 240 Output: Urine 400 / 400 1100 / 1100 Other: Urine Color Light Ginny Light Ginny Urine Appearance Clear Clear Urine Odor Normal Normal Voiding Methods Toilet Toilet Data Completed and Pending Completed studies during hospitalization [Text1]: CXR; No acute pulmonary findings CTA chest: Bilateral upper and lower lobe pulmonary emboli. Echo; Left Ventricle The left ventricle is normal size. The left ventricular systolic function is normal. The left ventricular ejection fraction is within the normal range. There is normal left ventricular wall thickness. There is normal LV segmental wall motion. There is no ventricular septal defect visualized. LVEF is 60%. Right Ventricle The right ventricle is normal size. The right ventricular systolic function is normal. The RVSP is 31.7 mmHg. Atria The left atrium size is normal. The right atrium size is normal. The interatrial septum is intact with no evidence for an atrial septal defect. Aortic Valve Aortic valve is trileaflet. No hemodynamically significant valvular aortic stenosis. No aortic regurgitation is present. Mitral Valve The mitral valve is normal in structure. No evidence of mitral valve stenosis. Trace mitral regurgitation. Tricuspid Valve The tricuspid valve is normal in structure. There is no tricuspid valve stenosis. Trace tricuspid regurgitation. Pulmonic Valve The pulmonary valve is normal in structure. There is no pulmonic valvular stenosis. There is no pulmonic valvular regurgitation. Great Vessels The aortic root is normal in size. The ascending aorta is mildly dilated. IVC is normal in size and collapses >50% with inspiration. Pericardium There is no pericardial effusion. There is no pleural effusion. US venous: Right: Negative for DVT Left: Deep venous thrombosis in the popliteal and 1 of the paired posterior tibial veins. Labs on day of discharge: Labs from last 24 hours 06/07/20 06/07/20 06/07/20 06:11 06:11 06:11 WBC 8.32 RBC 5.20 Hgb 13.8 Hct 41.3 MCV 79.4 L MCH 26.5 L MCHC 33.4 RDW 13.6 Plt Count 277 MPV 9.2 Immature Gran % 0.2 Neutrophils % 59.5 Lymphocytes % 24.8 Monocytes % 7.1 Eosinophils % 7.7 Basophils % 0.7 Absolute Neutrophils 4.95 Absolute Lymphocytes 2.06 Absolute Monocytes 0.59 Absolute Eosinophils 0.64 Absolute Basophils 0.06 Sodium 140 Potassium 3.7 Chloride 105 Carbon Dioxide 26.1 Anion Gap 8.9 BUN 9 Creatinine 0.95 Estimated GFR/1.73 m2 >= 60.00 Glucose 99 D Hemoglobin A1c 6.0 H Calcium 8.4 L Magnesium 2.1 Total Bilirubin 0.8 Conjugated Bilirubin 0.14 AST 16 ALT 24 Alkaline Phosphatase 83 Troponin I < 0.05 Total Protein 6.6 Albumin 3.1 L COVID-19 PCR Nasopharyn COVID-19 PCR Ref Test Perform Site 06/06/20 06/06/20 14:15 13:18 WBC RBC Hgb Hct MCV MCH MCHC RDW Plt Count MPV Immature Gran % Neutrophils % Lymphocytes % Monocytes % Eosinophils % Basophils % Absolute Neutrophils Absolute Lymphocytes Absolute Monocytes Absolute Eosinophils Absolute Basophils Sodium Potassium Chloride Carbon Dioxide Anion Gap BUN Creatinine Estimated GFR/1.73 m2 Glucose Hemoglobin A1c Calcium Magnesium Total Bilirubin Conjugated Bilirubin AST ALT Alkaline Phosphatase Troponin I < 0.05 Total Protein Albumin COVID-19 PCR Negative Nasopharyn COVID-19 PCR Not Applicable Ref Test Perform Site [facility] Medical History (Updated 06/07/20 @ 13:51 by April Hinton MD) Esophageal reflux (Acute) Essential hypertension (Acute) Headache (Acute) Obesity (Acute) Sleep apnea in adult (Acute) Surgical History (Updated 06/06/20 @ 17:22 by April Hinton MD) H/O hand surgery (Acute) right hand H/O lumbar discectomy (Acute) S/P right rotator cuff repair (Inactive) Family History (Updated 06/06/20 @ 17:23 by April Hinton MD) Father Heart disease Mother Heart disease Stroke Cancer ovarian, breast, and lymphoma Pulmonary embolism Social History Smoking/Tobacco Use Status: Former Tobacco Use Alcohol Intake: current Alcohol Intake frequency: a few times a month Drug use: Never Substance use type: does not use Do you feel safe at home: Yes Do you feel safe in your relationship?: Yes
[2020-06-07] MEDS: Apixaban 5 MG TAB 10 MG PO (13:57)
--- NOTE | 2020-06-07 14:41 | CHAPLAIN ---
I had a brief visit with Xavier before he was discharged. He was waiting for paperwork and ready to drive himself home.
== END 2020-06-07 14:59 | disposition home or self-care (01) ==
LOC: ER 15:20 → MS 15:42
PROVIDERS: Admitting Provider Internal Medicine; Emergency Provider Emergency Medicine; PCP Emergency Medicine; Visit Provider Internal Medicine
DX: I26.99 Other pulmonary embolism without acute cor pulmonale (principal); I82.432 Acute embolism and thrombosis of left popliteal vein; I10 Essential (primary) hypertension; K21.9 Gastro-esophageal reflux disease without esophagitis; D68.59 Other primary thrombophilia; G47.33 Obstructive sleep apnea (adult) (pediatric); Z79.899 Other long term (current) drug therapy; E66.9 Obesity, unspecified; Z68.41 Body mass index [BMI] 40.0-44.9, adult; Z87.891 Personal history of nicotine dependence; R51 Headache; R73.03 Prediabetes
CPT/HCPCS: 36415; 71275; 80048; 80053; 80076; 93005; 94618; 96372; 99217; 99220; 99285; U0003; 71046; 83036; 83735; 83880; 84484; 85025; 85379; 93010; 93306; 93970; G0378; J1650; J3490

== ENCOUNTER 2020-07-27 18:11 | Outpatient (REF) | payer BC, SELFPAY ==
[2020-07-27 14:37] LABS: Calculated LDL 156 mg/dL (<100); Cholesterol 209 mg/dL (<200); HDL Cholesterol 41 mg/dL (40-60); Triglyceride 64 mg/dL (<150)
== END 2020-07-27 18:31 ==
LOC: LBN 18:11
PROVIDERS: PCP Emergency Medicine; Visit Provider Emergency Medicine
DX: E78.5 Hyperlipidemia, unspecified (principal)
CPT/HCPCS: 80061

== ENCOUNTER 2024-05-30 09:45 | Outpatient (REF) | payer BC, SELFPAY ==
--- NOTE | 2024-05-30 09:25 | SKI_PTH ---
PATIENT: Xavier Gary LOC: [facility] U#:[id number] AGE/SX: 49/M ROOM: RE05/30/[address]: Rocio Eugene : 1975 BED: DIS: 05/30/2024 SPEC #: [id number] RECD: 05/30/24 12:57 STATUS: LUIS REQ #: [id number] RAMON: 05/30/24 09:[address]: Rocio Eugene DEPT: Surgical Specimen RECD BY: Roseann Ontiveros ENTERED: 05/30/24 12:58 SP TYPE: JAMAL BROWN DR: Andrés Crespo, DIRECTOR ONLINE MARKETING Tissues: 1 - SKIN BIOPSY(SHAVE/PUNCH) Procedures: GROSS AND MICRO LEVEL 3 Comments: [id number]
== END 2024-05-30 09:46 | disposition home or self-care (01) ==
LOC: LBN 09:45
PROVIDERS: PCP Nurse Practitioner Family; Visit Provider Surgery
DX: L72.3 Sebaceous cyst (principal); L73.8 Other specified follicular disorders
CPT/HCPCS: 88304; 88305

== ENCOUNTER 2025-11-16 11:25 | Day surgery (SDC) | payer BC, SELFPAY ==
[2025-11-16 11:37] VITALS: BP 153/93; PULSE 70; RESP 16; TEMP 36.8; O2SAT 98
[2025-11-16] MEDS: Lactated Ringers 1,000 ML 80 ML IV (12:00)
[2025-11-16 12:51] VITALS: BMI 39.4
--- NOTE | 2025-11-16 12:51 | W.ANESPRE ---
General Info Date of Service Date Performed: 11/16/25 Height: 6 ft 1 in Weight: 135.5 kg Body Mass Index (BMI): 39.4 Surgical Procedure: Operation Date: 11/16/25 12:35 Proposed Procedure Side Surgeon wendy Nick MD Meds Allergies and Home Medications Allergies Allergy/AdvReac Type Severity Reaction Status Date / Time venom-honey bee Allergy Severe Anaphylaxsi Verified 11/16/25 11:35 s acetaminophen (From Percocet) AdvReac Intermediate N/V AND Verified 11/16/25 11:35 ABDOMINAL CRAMPING/Rebound VIEYRA oxycodone HCl (From Percocet) AdvReac Intermediate N/V AND Verified 11/16/25 11:35 ABDOMINAL CRAMPING Home Medication ?Medication ?Instructions ?Recorded esomeprazole magnesium 20 mg 20 mg PO DAILY #90 tab-caps 01/27/17 capsule,delayed release (Nexium) acetaminophen 500 mg tablet (Mapap 1,000 mg (2 x 500 mg) PO Q6H PRN 06/07/20 Extra Strength) PRN #0 tabs apixaban 5 mg tablet (Eliquis) 5 mg PO BID #180 tabs 12/26/22 Held on 11/15/25. Instructions: Changed by Provider valsartan 320 mg tablet 320 mg PO DAILY #90 tabs 01/12/25 amlodipine 10 mg tablet 10 mg PO DAILY #90 tabs 09/04/25 epinephrine 0.3 mg/0.3 mL 0.3 mg (0.3 mL) IM ONCE #1 SYRG 09/04/25 injection, auto-injector tadalafil 10 mg tablet 10 mg PO DAILY PRN sexual activity 09/13/25 #30 tabs tirzepatide (weight loss) 5 mg/0.5 5 mg (0.5 mL) subcut QWEEK #2 mL 11/07/25 mL subcutaneous pen injector bisacodyl 5 mg tablet,delayed 5 mg PO ONCE #4 tabs 11/08/25 release (Dulcolax (bisacodyl)) polyethylene glycol 3350 17 17 g PO ONCE #238 grams 11/08/25 gram/dose oral powder Current Visit Medications: Current Medications Generic Name Dose Route Start Last Admin Trade Name Freq PRN Reason Stop Dose Admin Ringer's Solution 1,000 mls @ 80 mls/hr 11/16/25 06:00 11/16/25 12:00 IV 11/16/25 23:59 80 mls/hr INFUSION HOWARD Administration Sodium Biphosphate/Sodium Phosphate 133 ml 11/16/25 06:00 Na Phosphate Enema-Adult 133 Ml Btl WI 11/16/25 23:59 DIRECTED PRN Sodium Chloride 0 ml 11/16/25 06:00 Normal Saline Flush 10 Ml Syr IV 11/16/25 23:59 PRN PRN Sodium Chloride 0 ml 11/16/25 06:00 Normal Saline 10 Ml Vial IJ 11/16/25 23:59 DIRECTED PRN Sterile Water 0 ml 11/16/25 06:00 Water,Injection,Sterile 10 Ml Vial IJ 11/16/25 23:59 DIRECTED PRN PFSH Active Problems Active Problems: Problem Status Onset Code Sebaceous cyst Acute L72.3 Anxiety Chronic F41.9 Headache Acute R51 COVID-19 ruled out by laboratory testing Acute Z03.818 Obesity, morbid, BMI 40.0-49.9 Acute E66.01 Pre-diabetes Acute R73.03 Discharge planning issues Acute Z02.9 Deep vein thrombosis (DVT) of popliteal vein of left lower extremity Acute I82.432 Obesity Acute E66.9 Esophageal reflux Acute K21.9 Essential hypertension Acute I10 Bilateral pulmonary embolism Acute I26.99 Sleep apnea in adult Acute G47.30 Family history of coronary artery disease Acute 16 Z82.49 History of tobacco use Acute Z87.891 History of tobacco use Acute Z87.891 Hyperlipidemia Acute E78.5 Migraine Acute G43.909 Sciatica Acute M54.30 Sciatica Acute M54.30 Surgical History Surgical History H/O hand surgery right hand H/O lumbar discectomy S/P right rotator cuff repair Tobacco Smoking/Tobacco Use Status: Current every day Tobacco Type: smokeless tobacco Smokeless tobacco user: chewing tobacco Passive smoking exposure: No Alcohol Alcohol Intake: current Alcohol intake frequency: a few times a month Substance Use Substance use: Never Substance use type: does not use Vital Signs and Lab Results Vital Signs Most Recent Vital Signs in EMR: Most Recent Vital Signs Temp Pulse Resp BP Pulse Ox 36.8 C 70 16 153/93 H 98 11/16/25 11:37 11/16/25 11:37 11/16/25 11:37 11/16/25 11:37 11/16/25 11:37 Anesthesia Assessment and Plan Anesthesia History Personal History: No History of Anesthesia Complications Family History: No Family History of Anesthesia Complications Exercise Tolerance Exercise Tolerance: Metabolic Equivalents>4 Pertinent Negatives Pertinent Negatives: No Symptoms of GERD Cardiac & Pulmonary Exam Cardiac Exam: Normal S1/S2 Heart Sounds Pulmonary Exam: Clear Bilateral Breath Sounds Implantable Cardiac Device Does patient have a Pacemaker or an ICD?: No Airway Exam Known Difficult Airway: No Mallampati Class: 2 Mouth Opening: Normal (> 3cm) Thyromental Distance: Greater than 3 cm Neck Range of Motion: Full ROM Neck Circumference: Normal Teeth Condition: Normal Dentition ASA Classification ASA Score: ASA 2 Emergency Case?: No NPO Status NPO Status: NPO Clears >2 hours, Solids >8 hours Anesthesia Plan Resuscitation Status: Full Code Anesthesia Technique: General Anesthesia Airway Planned: Natural Airway Monitors Used: Standard Monitors
--- NOTE | 2025-11-16 13:25 | W.COLOREPORT ---
Date of service: 11/16/25 Time of Service: 13:25 Colonoscopy Report Date of procedure: 11/16/25 Pre-op diagnosis general: Screening for colorectal cancer Post-op diagnosis procedure note: same Procedure: Colonoscopy Surgeon: Shannan Nick Anesthesia Type: General:No Airway Estimated blood loss (mL): 0 Pathology: none sent Complications: None Indications: screening for colorectal cancer Prep: Miralax/Dulcolax (Excellent) Procedure Description: Informed consent was obtained and the patient was taken to the procedure area. The patient was placed in left lateral decubitus position on the procedure table. Timeout was performed. Anesthesia was induced. A lubricated colonoscope was inserted through the anus and passed to the cecum. The cecum was identified by the ileocecal valve and the appendiceal orifice. The scope was then slowly withdrawn and the colonic and rectal mucosa examined. TI intubated and examined. It appears normal. There are no colon or rectal mass lesions, polyps, AVMs. There is no inflammatory change. Sigmoid diverticulosis was noted. The scope was retroflexed in the anorectal junction examined. Uncomplicated internal hemorrhoids present. Assessment and plan: Screening for colorectal cancer sigmoid diverticulosis Normal colonoscopy. Next screening colonoscopy will be due in 10 years. Diverticulosis of the sigmoid colon noted, no diverticulitis. Recommend fiber supplement or high fiber diet.
--- NOTE | 2025-11-16 13:27 | W.PM.DSUDISC ---
Date of service: 11/16/25 Discharge Plan Disposition Patient Disposition: Home Condition: Stable Discharge Details Attending Provider: Shannan Nick Primary Care Provider: Andrés Crespo Home Meds and New Rx's Prescriptions: Continued esomeprazole magnesium [Nexium] 20 MG capsule,delayed release(DR/EC) 20 mg PO DAILY Qty: 90 valsartan 320 mg tablet 320 mg PO DAILY Qty: 90 3RF amlodipine 10 mg tablet 10 mg PO DAILY Qty: 90 3RF epinephrine 0.3 mg/0.3 mL auto-injector 0.3 mg IM ONCE Qty: 1 0RF tadalafil 10 mg tablet 10 mg PO DAILY PRN (Reason: sexual activity) Qty: 30 3RF Rx Instructions: administer approximately 30min before sexual activity; do not use more than 1 dose per 24hrs tirzepatide (weight loss) 5 mg/0.5 mL pen injector 5 mg subcut QWEEK Qty: 2 0RF Rx Instructions: for 4 weeks acetaminophen [Mapap Extra Strength] 500 mg Tablet 1,000 mg PO Q6H PRN PRNQty: 0 0RF Discontinued bisacodyl [Dulcolax (bisacodyl)] 5 mg tablet,delayed release (DR/EC) 5 mg PO ONCE Qty: 4 0RF Rx Instructions: Take per colonoscopy instructions provided by ordering providers office polyethylene glycol 3350 17 gram/dose powder 17 g PO ONCE Qty: 238 0RF Rx Instructions: Take per colonoscopy instructions provided by ordering providers office Eliquis 5 mg tablet 5 mg PO BID Qty: 180 3RF Discharge Instructions Additional Instructions: Excellent prep. Normal colonoscopy. Zero polyps. Next screening colonoscopy will be due in 10 years. Diverticulosis of the sigmoid colon noted, no diverticulitis (infection) present. Take a daily fiber supplement and eat a high fiber diet to prevent problems and progression of diverticulosis. Stand Alone Forms: Portal Information Activity:: Activity as Tolerated Diet:: As Tolerated Discharge Orders Discharge Orders: Discharge Order (Routine); Ordered 11/16/25 Ordered By: Shannan Nick DS: Diagnosis Discharge Diagnosis (1) Screening for colorectal cancer: Status: Acute (2) Sigmoid diverticulosis: Status: Acute
[2025-11-16 13:29] VITALS: BP 102/83; PULSE 70; RESP 16; TEMP 36.7; O2SAT 94
--- NOTE | 2025-11-16 13:35 | W.ANESPOSTOP ---
Postoperative Evaluation Date, Time and Location Date Performed: 11/16/25 Time Performed: 13:35 Patient Location: Day Surgery Unit Vital Signs Most Recent Imported Vital Signs: Most Recent Vital Signs Temp Pulse Resp BP Pulse Ox 36.7 C 70 16 102/83 94 11/16/25 13:29 11/16/25 13:29 11/16/25 13:29 11/16/25 13:29 11/16/25 13:29 Pain Score Most Recent Pain Score: Most Recent Pain Score Pain Level 0 11/16/25 13:29 Assessment Mental Status: Awake (Alert & Oriented to Patient Baseline) Airway and Respiratory Function: Patent airway with normal (patient baseline) respiratory exam Cardiovascular Function: Hemodynamically Stable Hydration Status: Adequately Hydrated Nausea & Vomiting: No Nausea or Vomiting Pain: Pt. Denies Any Pain Peripheral Nerve Block: Patient did not receive a nerve block
[2025-11-16 13:58] VITALS: BP 131/81; PULSE 54; RESP 16; TEMP 36.7; O2SAT 98
== END 2025-11-16 14:07 | disposition home or self-care (01) ==
PROVIDERS: PCP Nurse Practitioner Family; Visit Provider Surgery
PROC: 0DJD8ZZ Inspection of Lower Intestinal Tract, Via Natural or Artificial Opening Endoscopic (ICD-10-PCS; CPT 45378; principal; 2025-11-16 12:30)
DX: Z12.11 Encounter for screening for malignant neoplasm of colon (principal); Z12.12 Encounter for screening for malignant neoplasm of rectum; K57.30 Diverticulosis of large intestine without perforation or abscess without bleeding
CPT/HCPCS: 45378; J2003; J2704